=== PATIENT | male | born 1965 | race Caucasian/White ===

== ENCOUNTER 2019-08-07 13:34 | Inpatient (IN) ==
[2019-08-07] MEDS ORDERED: IPRATROPIUM/ALBUTEROL 3 ML AMPUL.NEB NEB ONE ×2 (13:40→14:09)
[2019-08-07] MEDS ORDERED: BENZONATATE 100 MG CAPSULE PO ONE (14:08)
[2019-08-07] MEDS ORDERED: HYDROCORTISONE 10 MG TABLET PO ONE (14:10)
--- NOTE | 2019-08-07 14:18 | Emergency Department Note ---
SOB HPI - General Chief Complaint: Shortness of Breath/Dyspnea Stated Complaint: shortness of breath Time Seen by Provider: 08/07/19 13:40 Source: patient Mode of arrival: ambulatory Limitations: no limitations - History of Present Illness 54-year-old male patient presents emergency department, accompanied by his , with chief complaint of worsening shortness of breath, productive cough, chills, and fever. Patient tells me he became symptomatic last week with the cough and shortness of breath. This progressively worsened until today. He is a liver transplant patient and is known to be immunocompromised associated with this. He was seen by his cook apprentice on 08/02 and during that visit he mention these complaints to the specialist. His cook apprentice ordered a chest x-ray and influenza nasal swab that both were considered negative. He was started on Aug mentin twice daily and has been taking it for the last 3 days without relief. He denies considerable history of COPD but does mention quitting smoking approximately 10 years ago. He is unsure how high his fevers been at home. He admits that his temperature tends to "run low" in his temperature in triage was considered normal at 98.5. He denies sinus congestion or runny nose. He is unsure the color of his sputum. He admits to worsening shortness of breath that is caused to be somewhat anxious. He admits to chest "pressure" but denies overt retrosternal chest pain or palpitations. He denies abdominal pain, nausea, vomiting, or diarrhea. He denies focal weakness. A review of his active problems shows the following: Rheumatoid arthritis, immunosuppression, CVA, liver transplant, hypertension, Valencia's disease, DVT, TIA, chronic kidney disease stage III, psoriasis, osteoporosis, former smoker, hyperkalemia, Dupuytren's disease. - Related Data Home Medications Medication Instructions Recorded Confirmed acetaminophen 500 mg tablet 500 mg PO PRN PRN tab 12/31/18 08/03/19 multivitamin 1 tab PO QDAY 12/31/18 08/03/19 omega-3 fatty acids 1 each PO QDAY 12/31/18 08/03/19 ondansetron HCl 4 mg tablet 4 mg PO Q6H PRN tab 12/31/18 08/03/19 aspirin 81 mg tablet,delayed 81 mg PO QDAY 01/02/19 08/03/19 release tacrolimus 2.5 mg PO BID 01/02/19 08/03/19 oxycodone 15 mg tablet 15 mg PO Q4-5H PRN tab 05/04/19 08/03/19 Previous Rx's Medication Instructions Recorded clobetasol 0.05 % shampoo 1 applic TOPICAL QDAY 7 Days #118 02/24/19 ml hydrocortisone 10 mg tablet 20 mg PO TID #180 tab 05/04/19 mycophenolate mofetil 500 mg tablet 500 mg PO BID #360 tab 05/19/19 amoxicillin 875 mg-potassium 1 tab PO BID #10 tab 08/04/19 clavulanate 125 mg tablet Allergies Allergy/AdvReac Type Severity Reaction Status Date / Time adalimumab [From Humira] Allergy Unknown unknown Verified 08/07/19 13:39 Torsemide AdvReac Severe Abdominal Verified 08/07/19 13:39 Pain Review of Systems All systems ED: reviewed and negative except as stated. Past Medical History - Social History smoking status: Former smoker Physical Exam Limitations: no limitations General appearance: alert, anxious, other (Well-developed, well-nourished, 54-year-old male patient laying semi-recumbent on the emergency room gurney in obvious but mild respiratory distress. He is coughing considerably during exam. He does continue to speak in complete sentences.) Head: atraumatic, normocephalic Eye: Present: normal appearance, PERRL, EOMI. Absent: scleral icterus, conjunctival injection ENT: Present: normal oropharynx, mucous membranes moist Neck: Present: trachea midline. Absent: lymphadenopathy, thyromegaly Chest: Present: symmetric chest wall rise Respiratory: Present: respiratory distress (Mild respiratory distress.), wheezes, prolonged expiratory phase, decreased breath sounds, other (Considerable rhonchi heard throughout the chest. This did not clear considerably with deep cough.). Absent: rales/crackles, stridor Cardiovascular: Present: regular rate, normal rhythm. Absent: systolic murmur, diastolic murmur Abdominal: Present: soft. Absent: distention, tenderness, guarding, rebound, rigidity, organomegaly, mass Extremities: Present: normal inspection, full ROM, normal capillary refill. Absent: pedal edema Back: Present: normal inspection, full ROM Neurological: Present: alert, oriented X3, normal gait, reflexes normal. Absent: motor sensory deficit Psychiatric: Present: normal affect, anxious Skin: Present: warm, dry, normal color Course Course Narrative: Patient was brought into the emergency department and a history and physical exam was performed. I discussed the case and the potential work-up with my collaborating physician (Dr. Campo). At this time routine laboratory studies will be drawn. Repeat chest x-ray was ordered and reviewed. Repeat influenza nasal swab was also ordered and reviewed. Patient has no known exposure to the novel coronavirus. Patient was given DuoNeb treatment x2. Patient was also given benzonatate 20 mg p.o. Review his laboratory studies show the following: CBC WBC 4.0, RBC 4.11, hemoglobin 12.7, hematocrit 36.4, platelet 103. CMP BUN 22, creatinine 1.4, glucose 107, all others normal limits. Procalcitonin 0.06. Lactic acid 1.9. Two-view chest x-ray showing small right lower lobe infiltrate. This is a change from previous chest x-ray done on 08/02. During this time the patient did become profoundly hypoxic with an SPO2 of 81 on room air. Nursing staff placed him on O2 at 2 L/min. SPO2 increased dramatically to 98%. Patient has not been on oxygen prior. Patient was given 1 g of Rocephin IV and 500 mg of azithromycin p.o. After reviewing all the data I reached out to our hospitalist (Dr. Manrique) about possible admission. Hospitalist recommended recommended manual differential the patient CBC. He also consented to to admit the patient to the facility. Upon reevaluation patient is resting comfortably on the emergency room [facility]. He still requires 2 L of oxygen via nasal cannula. I discussed she is admission. At this time patient is going to be admitted to our hospital under the care of the hospitalist. All further treatment decisions, modalities, and ultimate patient disposition will be carried out by Dr. Manrique. Vital Signs Temperature 98.5 F 08/07/19 13:35 Pulse Rate 80 08/07/19 13:35 Respiratory Rate 18 08/07/19 13:35 Blood Pressure 158/110 08/07/19 13:35 Pulse Oximetry (%) 94 08/07/19 13:35 Temperature 98.5 F 08/07/19 13:35 Pulse Rate 90 08/07/19 14:46 Respiratory Rate 18 08/07/19 13:35 Blood Pressure 136/72 08/07/19 14:46 Pulse Oximetry (%) 89 L 08/07/19 14:46 Shortness of Breath/Dyspnea - Lab Data Result diagrams: 08/07/19 14:38 08/07/19 14:38 Lab Results 08/07/19 08/07/19 08/07/19 Range/Units 14:38 14:38 14:38 WBC 4.0 L (4.50-11.00) K/mcL RBC 4.11 L (4.63-6.08) M/mcL Hgb 12.7 L (13.7-17.5) g/dL Hct 36.4 L (40.1-51.0) % MCV 88.6 (80.0-100.0) fL MCH 30.9 (26.0-34.0) pg MCHC 34.9 (31.0-36.0) g/dL RDW 12.3 (11.5-14.5) % Plt Count 103 L (140-440) K/mcL MPV 9.6 (7.4-10.4) fL Gran % 62.2 (38.0-78.0) % Lymph % (Auto) 28.3 (15.5-49.0) % [place]ier % (Auto) 8.0 (1.0-12.0) % Eos % (Auto) 1.0 (0.0-7.0) % Baso % (Auto) 0.5 (0.0-2.0) % Gran # 2.48 (1.80-8.00) K/mcL Lymph # (Auto) 1.13 L (1.50-4.80) K/mcL [place] # (Auto) 0.32 (0.10-0.90) K/mcL Eos # (Auto) 0.04 (0.00-0.70) K/mcL Baso # (Auto) 0.02 (0.00-0.30) K/mcL VBG Lactic Acid (0.5-2.0) mmol/L Sodium 138 (133-145) mmol/L Potassium 4.2 (3.3-5.1) mmol/L Chloride 98 (96-108) mmol/L Carbon Dioxide 27 (22-30) mmol/L Anion Gap 13.0 (8-16) BUN 22 H (6-20) mg/dl Creatinine 1.4 H (0.7-1.2) mg/dl GFR Calculation 56 Glucose 107 H (70-105) mg/dL Calcium 9.7 (8.6-10.4) mg/dl Total Bilirubin 0.4 (0.0-1.0) mg/dL AST 17 (0-37) U/l ALT 14 (0-40) U/l Alkaline Phosphatase 60 (39-117) U/L Total Protein 7.2 (5.9-8.4) gm/dL Albumin 4.8 (3.2-5.2) gm/dL Globulin 2.4 (2.2-3.7) gm/dL Albumin/Globulin Ratio 2.0 (1.0-2.3) Procalcitonin 0.06 (<0.10) ng/mL 08/07/19 Range/Units 14:38 WBC (4.50-11.00) K/mcL RBC (4.63-6.08) M/mcL Hgb (13.7-17.5) g/dL Hct (40.1-51.0) % MCV (80.0-100.0) fL MCH (26.0-34.0) pg MCHC (31.0-36.0) g/dL RDW (11.5-14.5) % Plt Count (140-440) K/mcL MPV (7.4-10.4) fL Gran % (38.0-78.0) % Lymph % (Auto) (15.5-49.0) % Lanier % (Auto) (1.0-12.0) % Eos % (Auto) (0.0-7.0) % Baso % (Auto) (0.0-2.0) % Gran # (1.80-8.00) K/mcL Lymph # (Auto) (1.50-4.80) K/mcL Lanier # (Auto) (0.10-0.90) K/mcL Eos # (Auto) (0.00-0.70) K/mcL Baso # (Auto) (0.00-0.30) K/mcL VBG Lactic Acid 1.9 (0.5-2.0) mmol/L Sodium (133-145) mmol/L Potassium (3.3-5.1) mmol/L Chloride (96-108) mmol/L Carbon Dioxide (22-30) mmol/L Anion Gap (8-16) BUN (6-20) mg/dl Creatinine (0.7-1.2) mg/dl GFR Calculation Glucose (70-105) mg/dL Calcium (8.6-10.4) mg/dl Total Bilirubin (0.0-1.0) mg/dL AST (0-37) U/l ALT (0-40) U/l Alkaline Phosphatase (39-117) U/L Total Protein (5.9-8.4) gm/dL Albumin (3.2-5.2) gm/dL Globulin (2.2-3.7) gm/dL Albumin/Globulin Ratio (1.0-2.3) Procalcitonin (<0.10) ng/mL Disposition Pt seen by MANAGER CANCER/PA only: Yes Clinical Impression: Immunosuppressed status, Liver transplant status Pneumonia Qualifiers: Pneumonia type: due to unspecified organism Laterality: right Lung location: lower lobe of lung Qualified Code(s): J18.9 - Pneumonia, unspecified organism Disposition: Xfer As Outpt/Obs ([facility]) Condition: Good Additional Instructions: Patient is being admitted to the hospital under the care of the hospitalist (Dr. Manrique). All further treatment decisions, modalities, and ultimate patient disposition be carried out by the hospitalist. Referrals: Alan Dempsey DO [Primary Care Provider] -
--- NOTE | 2019-08-07 15:16 | XRay Report ---
CLINICAL INFORMATION: 54 y/o M. Worsening cough, chest congestion X 1 wk COMPARISON: 08/03/2019 FINDINGS: Heart size, mediastinum and pulmonary vessels are normal. Small infiltrate posterior right lower lobe. No effusion. IMPRESSION: Small right lower lobe infiltrate Interpreted and Authenticated by: Yaron Carroll 08/07/19
[2019-08-07 15:22] LABS: Basophils # (Auto) 0.02 K/mcL (0.00-0.30); Basophils % (Auto) 0.5 % (0.0-2.0); Eosinophils # (Auto) 0.04 K/mcL (0.00-0.70); Granulocytes % (Auto) 62.2 % (38.0-78.0); Hematocrit 36.4 % (40.1-51.0); Hemoglobin 12.7 g/dL (13.7-17.5); Lymphocytes # (Auto) 1.13 K/mcL (1.50-4.80); Lymphocytes % (Auto) 28.3 % (15.5-49.0); Mean Cell Volume 88.6 fL (80.0-100.0); Mean Corpuscular HGB Conc 34.9 g/dL (31.0-36.0); Mean Platelet Volume 9.6 fL (7.4-10.4); Monocytes # (Auto) 0.32 K/mcL (0.10-0.90); Platelet Count 103 K/mcL (140-440); RBC 4.11 M/mcL (4.63-6.08); Red Cell Distribution Width 12.3 % (11.5-14.5)
[2019-08-07] MEDS ORDERED: AZITHROMYCIN 250 MG TABLET PO ONE (15:24)
[2019-08-07] MEDS ORDERED: cefTRIAXone 1 GM VIAL IV SCH (15:30)
[2019-08-07 15:46] LABS: ALT/SGPT 14 U/l (0-40); AST/SGOT 17 U/l (0-37); Albumin 4.8 gm/dL (3.2-5.2); Alkaline Phosphatase 60 U/L (39-117); Bilirubin,Total 0.4 mg/dL (0.0-1.0); Blood Urea Nitrogen 22 mg/dl (6-20); Calcium 9.7 mg/dl (8.6-10.4); Carbon Dioxide 27 mmol/L (22-30); Chloride 98 mmol/L (96-108); Globulin 2.4 gm/dL (2.2-3.7); Glomerular Filtration Rate 56; Glucose 107 mg/dL (70-105)
--- NOTE | 2019-08-07 17:03 | Internal Med History&Physical ---
Medical - H&P: [facility] Patient information: Note initiated : 08/07/19 at 5:00 pm Service Date, if different from initiated Date: [] Patient: Caio Lang a 54 y/o M admitted on for shortness of breath. Chief Complaint: [] History of present illness: Mr. Lang is a 54 year old M Presents the ED with fever chills coughing shortness of breath. Patient states about a week ago he started belting rhinorrhea and subsequent cough of clear white sputum. He then developed fevers and chills body aches and headache which he attributed the cough. Decreased appetite and weakness. Also had some nausea. Over the past 2 to 3 days had increased shortness of breath. He saw his physician and was prescribed Augmentin and has taken that for 3 days but has not felt any better. In the ED he was noted to drop his oxygen saturation at one point down to the 80s on room air. Patient denies any traveling or sick contacts. Patient denies any chest pain or stomach pain other than muscle pain from coughing. Chest x-ray in ED read as a right lower lobe infiltrate. He states the DuoNeb treatment he received in the ED helped his breathing. He had a rapid flu test recently which was negative Review of Systems: Pertinent positives as above. Denies vomiting/chest or abdominal pain/diarrhea. Remaining 10 point review of system reviewed negative Medical - H&P: PM Medical history: Medical History (Last Updated 08/07/19 @ 13:48 by Yoni Campo DO) Rheumatoid arthritis (Chronic) Immunosuppressed status (Chronic) Therapeutic drug monitoring (Chronic) Therapeutic drug monitoring (Chronic) CVA (cerebral vascular accident) (Chronic) Liver cirrhosis (Chronic) Essential hypertension (Chronic) Parmele disease (Chronic) DVT (deep venous thrombosis) (Chronic) Chronic pain (Chronic) TIA (transient ischemic attack) (Chronic) Psoriatic arthritis (Chronic) CKD stage G3b/A1, GFR 30-44 and albumin creatinine ratio <30 mg/g (Chronic) History of ATN (Chronic) Psoriasis (Chronic) Edema (Chronic) Hip pain (Chronic) Osteoporosis (Chronic) Arthritis (Chronic) Renal insufficiency (Chronic) Former smoker (Chronic) Expressive aphasia (Chronic) Hyperkalemia (Chronic) Osteoarthritis (Chronic) Polyarthralgia (Chronic) Dupuytren's disease (Chronic) Drug-induced hyperkalemia (Resolved) Shoulder pain (Resolved) Past Surgical History (Last Reviewed 08/03/19 @ 08:39 by Boni Duque MD) Liver transplant status (Chronic) History of adenoidectomy (Chronic) History of carpal tunnel release (Chronic) History of hernia repair (Chronic) History of liver transplant (Chronic 09/11/16) History of tonsillectomy (Chronic) Family History (Last Reviewed 08/03/19 @ 08:39 by Boni Duque MD) Mother COPD (chronic obstructive pulmonary disease) Father Myocardial infarction Malignant neoplasm of skin Social History (Last Updated 08/03/19 @ 14:14 by Boni Duque MD) Patient quit smoking 15 years ago Denies alcohol use Lives at home with his . Medical - H&P: Meds Home Medications Medication Instructions Recorded Confirmed Type acetaminophen 500 mg tablet 500 mg PO PRN PRN tab 12/31/18 08/07/19 History multivitamin 1 tab PO QDAY 12/31/18 08/07/19 History omega-3 fatty acids 1 each PO QDAY 12/31/18 08/03/19 History ondansetron HCl 4 mg tablet 4 mg PO Q6H PRN tab 12/31/18 08/07/19 History aspirin 81 mg tablet,delayed 81 mg PO QDAY 01/02/19 08/07/19 History release tacrolimus 2.5 mg PO BID 01/02/19 08/07/19 History hydrocortisone 10 mg tablet 20 mg PO TID #180 tab 05/04/19 08/07/19 Rx oxycodone 15 mg tablet 15 mg PO Q4-5HP PRN tab 05/04/19 08/07/19 History mycophenolate mofetil 500 mg tablet 500 mg PO BID #360 tab 05/19/19 08/07/19 Rx amoxicillin 875 mg-potassium 1 tab PO BID #10 tab 08/04/19 08/07/19 Rx clavulanate 125 mg tablet Allergies Allergy/AdvReac Type Severity Reaction Status Date / Time adalimumab [From Humira] Allergy Unknown unknown Verified 08/07/19 13:39 Torsemide AdvReac Severe Abdominal Verified 08/07/19 13:39 Pain Medical - H&P: Exam - Constitutional Vitals: Temp Pulse Resp BP Pulse Ox 98.5 F 90 18 136/72 89 L 08/07/19 13:35 08/07/19 14:46 08/07/19 13:35 08/07/19 14:46 08/07/19 14:46 Exam: General: Alert, Awake, No acute Distress Eyes/N/T: EOMI, PERRL, Head/Neck: neck supple, normocephalic atraumatic CV: RRR, 2/6 SM Pulm: b/l rhonchi to mid chest and mild b/l wheezing Abd: soft, nontender, +BS x4 Ext: no clubbing/cyanosis/edema Neuro: Alert, no focal deficits, moves all extremities, CN 2-12 grossly intact, symmetrical strength b/l upper/lower, sensations intact b/l upper/lower Skin: warm/dry Medical - H&P: Reslt - Labs CBC & Chem 7: 08/07/19 14:38 08/07/19 14:38 Labs: Short CBC 08/07/19 Range/Units 14:38 WBC 4.0 L (4.50-11.00) K/mcL Hgb 12.7 L (13.7-17.5) g/dL Hct 36.4 L (40.1-51.0) % Plt Count 103 L (140-440) K/mcL BMP 08/07/19 14:38 Sodium 138 Potassium 4.2 Chloride 98 Carbon Dioxide 27 BUN 22 H Creatinine 1.4 H Glucose 107 H Calcium 9.7 Liver Function 08/07/19 Range/Units 14:38 Total Bilirubin 0.4 (0.0-1.0) mg/dL AST 17 (0-37) U/l ALT 14 (0-40) U/l Alkaline Phosphatase 60 (39-117) U/L Albumin 4.8 (3.2-5.2) gm/dL Medical - H&P: A/P - Narrative A/P Narrative: A: *Pneumonia (RLL): suspect viral but concern for bacterial superinfection, pt high-risk -no improvement on Augmentin for 3-days prior to arrival *Acute hypoxic respiratory failure: -on 2L NC *Leukopenia: *Liver transplant/Immunosuppressed: Liver failure felt to be from Humira. Is on mycophenolate and tacrolimus *CKD IIIb: Follows with Dr. Duque *Anemia, chronic *h/o Jose's: on hydrocortisone *RA: Follows with rheumatology *h/o CVA w/mild memory deficits: * P: -RVP pending, crp/esr -SC pending -Vanc/Cefepime for now -O2 supp -Nebs/IS/Acapella -no need for stress steroid dosing at this time - -cont home medications -ppx: lovenox
[2019-08-07 18:36] LABS: Band Neutrophils % 2 % (0-10); Eosinophils % (Manual) 1 % (0-7); Lymphocytes % 22 % (15-49); Monocytes % (Manual) 4 % (1-12); Platelet Estimate DECREASED (NORMAL); RBC Morphology NORMAL (NORMAL); Reactive Lymphocytes 1 % (0-2); Segmented Neutrophils % 70 % (38-78)
[2019-08-07] MEDS ORDERED: IPRATROPIUM/ALBUTEROL 3 ML AMPUL.NEB NEB PRN (19:13)
[2019-08-07] MEDS ORDERED: POLYETHYLENE GLYCOL 3350 17 GM PACKET PO PRN (19:13)
[2019-08-07] MEDS ORDERED: 0.9 % SODIUM CHLORIDE 1,000 ML IV SCH (19:13)
[2019-08-07] MEDS ORDERED: VANCOMYCIN PER PHARMACY IV SCH (19:13)
[2019-08-07] MEDS ORDERED: SENNOSIDES 1 TABLET PO PRN (19:13)
[2019-08-07] MEDS ORDERED: POTASSIUM CHLORIDE 40 MEQ in DEXTROSE 5% IN WATER 500 ML IV PRN (19:13)
[2019-08-07] MEDS ORDERED: POTASSIUM CHLORIDE 20 MEQ TABLET PO PRN ×2 (19:13)
[2019-08-07] MEDS ORDERED: MAGNESIUM SULFATE 2 GM/50 ML BAG IV PRN (19:13)
[2019-08-07] MEDS: MYCOPHENOLATE 250 MG CAPSULE PO SCH (20:19)
[2019-08-07] MEDS: oxyCODONE HCL 5 MG TABLET PO PRN (20:20)
[2019-08-07] MEDS: CEFEPIME 2 GM VIAL IV SCH (20:20)
[2019-08-07] MEDS: HYDROCORTISONE 10 MG TABLET PO SCH (20:20)
[2019-08-07] MEDS: IPRATROPIUM/ALBUTEROL 3 ML AMPUL.NEB NEB SCH (20:20)
[2019-08-07] MEDS: TACROLIMUS 0.5 MG CAPSULE PO SCH (20:23)
[2019-08-07] MEDS: TACROLIMUS 1 MG CAPSULE PO SCH (20:24)
[2019-08-07] MEDS: ONDANSETRON 4 MG/2 ML VIAL IV PRN (20:26)
[2019-08-07] MEDS: 0.9 % SODIUM CHLORIDE 10 ML SYRINGE IV SCH (20:34)
[2019-08-07] MEDS: VANCOMYCIN 1,000 MG in 0.9 % SODIUM CHLORIDE 250 ML IV SCH (20:38)
[2019-08-07] MEDS: ACETAMINOPHEN 325 MG TABLET PO PRN (20:49)
[2019-08-08] MEDS: ONDANSETRON 4 MG/2 ML VIAL IV PRN ×3 (00:45→12:00)
[2019-08-08] MEDS: BENZONATATE 100 MG CAPSULE PO PRN ×2 (02:39→21:35)
[2019-08-08] MEDS: oxyCODONE HCL 5 MG TABLET PO PRN ×3 (02:39→21:26)
[2019-08-08] MEDS: ACETAMINOPHEN 325 MG TABLET PO PRN (02:39)
[2019-08-08] MEDS: 0.9 % SODIUM CHLORIDE 10 ML SYRINGE IV SCH ×3 (05:43→20:09)
[2019-08-08 06:33] LABS: Hematocrit 34.4 % (40.1-51.0); Hemoglobin 11.7 g/dL (13.7-17.5); Mean Cell Volume 89.8 fL (80.0-100.0); Mean Platelet Volume 9.8 fL (7.4-10.4); Platelet Count 101 K/mcL (140-440); RBC 3.83 M/mcL (4.63-6.08); Red Cell Distribution Width 12.3 % (11.5-14.5)
[2019-08-08 06:54] LABS: ALT/SGPT 11 U/l (0-40); AST/SGOT 12 U/l (0-37); Albumin 4.4 gm/dL (3.2-5.2); Albumin/Globulin Ratio 1.9 (1.0-2.3); Alkaline Phosphatase 55 U/L (39-117); Bilirubin,Direct < 0.2 mg/dL (0.0-0.3); Bilirubin,Total 0.4 mg/dL (0.0-1.0); Blood Urea Nitrogen 17 mg/dl (6-20); Carbon Dioxide 26 mmol/L (22-30); Chloride 102 mmol/L (96-108); Globulin 2.3 gm/dL (2.2-3.7); Glomerular Filtration Rate 56; Glucose 110 mg/dL (70-105); HDL Cholesterol 26 mg/dl (>40); LDL Cholesterol,Calculated 84 mg/dl (SEE CHART); Lactate Dehydrogenase 162 U/L (94-250); Non-HDL Cholesterol 114 (LDL TARGET+30); Triglycerides 153 mg/dl (<150); Uric Acid 6.4 mg/dL (2.5-8.0)
[2019-08-08 06:55] LABS: Phosphorous 3.1 mg/dL (2.7-4.5)
[2019-08-08 07:24] LABS: Band Neutrophils % 4 % (0-10); Lymphocytes % 19 % (15-49); Monocytes % (Manual) 7 % (1-12); Platelet Estimate DECREASED (NORMAL); RBC Morphology NORMAL (NORMAL); Segmented Neutrophils % 70 % (38-78)
--- NOTE | 2019-08-08 07:27 | XRay Report ---
CLINICAL INFORMATION: f/u RLL infiltrate COMPARISON: 08/07/2019 FINDINGS: Heart size, mediastinum and pulmonary vessels are unremarkable. The right lower lobe infiltrate as resolved since yesterday's film. Lungs are clear. No effusions. IMPRESSION: Negative chest - interval resolution of small right lower lobe infiltrate Interpreted and Authenticated by: Yaron Carroll 08/08/19
[2019-08-08] MEDS: MYCOPHENOLATE 250 MG CAPSULE PO SCH ×2 (07:40→20:09)
[2019-08-08] MEDS ORDERED: LABETALOL 5 MG/ML ML IV PRN (08:08)
--- NOTE | 2019-08-08 08:09 | Internal Med Progress Note ---
Medical - PN: Subj Patient information: Note initiated : 08/08/19 at 8:05 am Service Date, if different from initiated Date: [] Patient: Caio Lang a 54 y/o M admitted on 08/07/19 for shortness of breath. Chief Complaint: [] Interval history: Mr. Lang is a 54 year old M Presents the ED with fever chills coughing shortness of breath. Patient states about a week ago he started belting rhinorrhea and subsequent cough of clear white sputum. He then developed fevers and chills body aches and headache which he attributed the cough. Decreased appetite and weakness. Also had some nausea. Over the past 2 to 3 days had increased shortness of breath. He saw his physician and was prescribed Augmentin and has taken that for 3 days but has not felt any better. In the ED he was noted to drop his oxygen saturation at one point down to the 80s on room air. Patient denies any traveling or sick contacts. Patient denies any chest pain or stomach pain other than muscle pain from coughing. Chest x-ray in ED read as a right lower lobe infiltrate. He states the DuoNeb treatment he received in the ED helped his breathing. He had a rapid flu test recently which was negative 08/07 Poor sleep last night. Headache, nausea vomiting, fever chills, diarrhea last night. Feels like his lungs are little better but still coughing. Air this morning. Review of Systems: denies vomiting/chest or abdominal pain/ Otherwise see above. - Constitutional Vitals: Vital Signs Temp Pulse Resp BP Pulse Ox 98.7 F 73 16 137/89 98 08/08/19 06:54 08/08/19 06:54 08/08/19 06:54 08/08/19 06:54 08/08/19 06:54 Period Temp Pulse Resp BP Sys/Ureña Pulse Ox Last 24 Hr 97.1 F-98.9 F 65-94 - 94-169/56-113 89-100 Intake and Output 08/07/19 08/08/19 08/08/19 21:59 05:59 13:59 Intake Total 240 1920 Output Total 200 Balance 240 1720 Weight 97.976 kg Intake & Output: Intake & Output 08/07/19 08/08/19 08/08/19 21:59 05:59 13:59 Intake Total 240 1920 Output Total 200 Balance 240 1720 Weight 97.976 kg Intake: IV 1250 Sodium Chloride 0.9% 1,000 ml @ 1000 125 mls/hr IV .Q8H KELI Rx#: [id number] Vancomycin 1,000 mg In Sodium 250 Chloride 0.9% 250 ml @ 250 mls/ hr IV Q12H KELI Rx#:[id number] Oral 240 670 Output: Void Amount 200 Other: Urine Appearance Clear Urine Color Pale Stool Size Small Moderate Stool Color Brown Yellow Stool Consistency Soft Loose # Voids 1 1 # Bowel Movements 1 1 Exam: General: Alert, Awake, No acute Distress Eyes/N/T: EOMI, , Head/Neck: neck supple, CV: RRR, 2/6 SM Pulm: b/l rhonchi to mid chest and mild b/l wheezing mildly improved today Abd: soft, nontender, +BS x4 Ext: no clubbing/cyanosis/edema Neuro: Alert, no focal deficits, moves all extremities, Skin: warm/dry Medical - PN: Obj Da - Labs CBC & Chem 7: 08/08/19 05:27 08/08/19 05:27 Labs: Abnormal Lab Results 08/08/19 08/08/19 08/07/19 05:27 05:27 14:38 WBC 4.0 L RBC 3.83 L Hgb 11.7 L Hct 34.4 L Plt Count 101 L Lymph # (Auto) Platelet Estimate Decreased A ESR 16 H BUN Creatinine 1.4 H Glucose 110 H Triglycerides 153 H HDL Cholesterol 26 L 08/07/19 08/07/19 08/07/19 14:38 14:38 14:38 WBC 4.0 L RBC 4.11 L Hgb 12.7 L Hct 36.4 L Plt Count 103 L Lymph # (Auto) 1.13 L Platelet Estimate Decreased A ESR BUN 22 H Creatinine 1.4 H Glucose 107 H Triglycerides HDL Cholesterol Meds: Medications Acetaminophen (Tylenol) 650 mg PO Q6HP PRN PRN Reason: PAIN/FEVER > 101 Last Admin: 08/08/19 02:39 Dose: 650 mg Documented by: Albuterol/Ipratropium (Duoneb) 3 ml NEB Q4HP PRN PRN Reason: Shortness Of Breath Last Admin: 08/08/19 00:45 Dose: 3 ml Documented by: Albuterol/Ipratropium (Duoneb) 3 ml NEB BID [facility] Last Admin: 08/07/19 20:20 Dose: 3 ml Documented by: Aspirin (Aspirin) 81 mg PO QDAY [facility] Benzonatate (Tessalon) 200 mg PO TIDP PRN PRN Reason: Cough Last Admin: 08/08/19 02:39 Dose: 200 mg Documented by: Cefepime HCl (Maxipime) 2 gm IV Q12H [facility]; Protocol Last Admin: 08/07/19 20:20 Dose: 2 gm Documented by: Enoxaparin Sodium (Lovenox) 40 mg SQ DAILY [facility] Hydrocortisone (Cortef) 20 mg PO TID [facility] Last Admin: 08/07/19 20:20 Dose: 20 mg Documented by: Potassium Chloride 40 meq/ (Dextrose) 520 mls @ 130 mls/hr IV UD PRN PRN Reason: Potassium < 3 Magnesium Sulfate (Magnesium Sulfate) 2 gm in 50 mls @ 50 mls/hr IV UD PRN PRN Reason: Magnesium </= 1.6 Vancomycin HCl 1,000 mg/ (Sodium Chloride) 250 mls @ 250 mls/hr IV Q12H [facility] Last Infusion: 08/08/19 00:23 Dose: Infused Documented by: Mycophenolate Mofetil (Cellcept) 500 mg PO BID@0700,2000 [facility] Last Admin: 08/08/19 07:40 Dose: 500 mg Documented by: Ondansetron HCl (Zofran) 4 mg IV Q4HP PRN PRN Reason: Nausea And Vomiting Last Admin: 08/08/19 05:43 Dose: 4 mg Documented by: Oxycodone HCl (Roxicodone) 15 mg PO Q4-5HP PRN PRN Reason: Pain Last Admin: 08/08/19 02:39 Dose: 15 mg Documented by: Pneumococcal Polyvalent Vaccine (Pneumovax 23) 0.5 ml IM .ONCE ONE Stop: 08/08/19 10:01 Polyethylene Glycol (Miralax) 17 gm PO DAILYP PRN PRN Reason: Constipation Potassium Chloride (Kdur) 40 meq PO UD PRN PRN Reason: Potssium is 3-3.5 Potassium Chloride (Kdur) 40 meq PO UD PRN PRN Reason: Potassium < 3 Senna (Senokot) 2 tab PO DAILYP PRN PRN Reason: Constipation Sodium Chloride (Saline Flush) 10 ml IV Q8 [facility] Last Admin: 08/08/19 05:43 Dose: 10 ml Documented by: Tacrolimus (Tacrolimus) 2 mg PO BID [facility] Last Admin: 08/07/19 20:24 Dose: 2 mg Documented by: Tacrolimus (Prograf) 0.5 mg PO BID [facility] Last Admin: 08/07/19 20:23 Dose: 0.5 mg Documented by: Vancomycin HCl (Vancomycin Per Pharmacy) 1 order IV UD [facility]; Protocol Medical - PN: A/P - Time Spent With Patient Total time spent is greater than 50% in coordination of care (as documented) at patient's floor/unit and/or counseling patient: - Narrative A/P Narrative: A: *Pneumonia, Viral, (+)Human Metapneumovitus: but high risk for bacterial superinfection -no improvement on Augmentin for 3-days prior to arrival *Acute hypoxic respiratory failure: -on 2L NC on admit, now on Room air -still feeling quite poorly *Leukopenia: *Liver transplant/Immunosuppressed: Liver failure felt to be from Humira. Is on mycophenolate and tacrolimus *CKD IIIb: Follows with Dr. Duque *Anemia, chronic *h/o [place]'s: on hydrocortisone *RA: Follows with rheumatology *h/o CVA w/mild memory deficits: * P: -Vanc/Cefepime for now -O2 supp -Nebs/IS/Acapella -no need for stress steroid dosing at this time - -cont home medications -ppx: lovenox Medical - PN: Qual - VTE Deep Vein Thrombosis/Pulmonary Embolism Present on Admission: No
[2019-08-08] MEDS: IPRATROPIUM/ALBUTEROL 3 ML AMPUL.NEB NEB SCH ×3 (09:04→20:43)
[2019-08-08] MEDS ORDERED: diphenhydrAMINE 25 MG CAPSULE PO PRN ×2 (09:06→14:44)
[2019-08-08] MEDS: CEFEPIME 2 GM VIAL IV SCH ×2 (09:20→20:09)
[2019-08-08] MEDS: VANCOMYCIN 1,000 MG in 0.9 % SODIUM CHLORIDE 250 ML IV SCH ×2 (09:20→21:26)
[2019-08-08] MEDS: ASPIRIN 81 MG TAB.CHEW PO SCH (09:21)
[2019-08-08] MEDS: HYDROCORTISONE 10 MG TABLET PO SCH ×3 (09:21→20:09)
[2019-08-08] MEDS: TACROLIMUS 1 MG CAPSULE PO SCH ×2 (09:21→20:09)
[2019-08-08] MEDS: TACROLIMUS 0.5 MG CAPSULE PO SCH ×2 (09:21→20:09)
[2019-08-08] MEDS: ENOXAPARIN 40 MG/0.4 ML SYRINGE SQ SCH (09:22)
[2019-08-08] MEDS ORDERED: PNEUMOCOCCAL 23-VAL P-SAC VAC 0.5 ML SYRINGE IM ONE (10:00)
[2019-08-08] MEDS ORDERED: FLU VACC QS2019-20(6MOS UP)/PF 60 MCG/0.5 ML SYRINGE IM ONE (10:00)
[2019-08-08] MEDS ORDERED: PROCHLORPERAZINE 10 MG/2 ML VIAL IV PRN (14:43)
[2019-08-08] MEDS ORDERED: PROMETHAZINE 25 MG TABLET PO PRN (14:43)
[2019-08-08] MEDS: diphenhydrAMINE 12.5 MG/5 ML ORAL.SOL PO PRN (16:16)
[2019-08-08] MEDS ORDERED: LOPERAMIDE 2 MG CAPSULE PO PRN (18:29)
[2019-08-08] MEDS: MELATONIN 3 MG TABLET PO SCH (20:09)
[2019-08-09] MEDS: 0.9 % SODIUM CHLORIDE 10 ML SYRINGE IV SCH ×4 (03:11→20:15)
[2019-08-09] MEDS: MYCOPHENOLATE 250 MG CAPSULE PO SCH ×2 (07:36→20:14)
--- NOTE | 2019-08-09 08:10 | Internal Med Progress Note ---
Medical - PN: Subj Patient information: Note initiated : 08/09/19 at 8:09 am Service Date, if different from initiated Date: [] Patient: Caio Lang a 54 y/o M admitted on 08/07/19 for shortness of breath. Chief Complaint: [] Interval history: Mr. Lang is a 54 year old M Presents the ED with fever chills coughing shortness of breath. Patient states about a week ago he started belting rhinorrhea and subsequent cough of clear white sputum. He then developed fevers and chills body aches and headache which he attributed the cough. Decreased appetite and weakness. Also had some nausea. Over the past 2 to 3 days had increased shortness of breath. He saw his physician and was prescribed Augmentin and has taken that for 3 days but has not felt any better. In the ED he was noted to drop his oxygen saturation at one point down to the 80s on room air. Patient denies any traveling or sick contacts. Patient denies any chest pain or stomach pain other than muscle pain from coughing. Chest x-ray in ED read as a right lower lobe infiltrate. He states the DuoNeb treatment he received in the ED helped his breathing. He had a rapid flu test recently which was negative 08/07 Poor sleep last night. Headache, nausea vomiting, fever chills, diarrhea last night. Feels like his lungs are little better but still coughing. Air this morning. 08/08 Slept better last night. Has occasional headache and had chills through the night. Some sinus congestion and cough. Cough productive. Shortness of breath improving. Review of Systems: denies vomiting/chest or abdominal pain. Otherwise see above. - Constitutional Vitals: Vital Signs Temp Pulse Resp BP Pulse Ox 99.5 F H 73 18 132/74 96 08/09/19 06:52 08/09/19 06:52 08/09/19 06:52 08/09/19 06:52 08/09/19 06:52 Period Temp Pulse Resp BP Sys/Ureña Pulse Ox Last 24 Hr 98.2 F-99.5 F 67-99 16-20 132-151/66-88 95-98 Intake and Output 08/08/19 08/09/19 08/09/19 21:59 05:59 13:59 Intake Total 1920 750 Output Total 450 Balance 1470 750 Weight 88.768 kg Intake & Output: Intake & Output 08/08/19 08/09/19 08/09/19 21:59 05:59 13:59 Intake Total 1920 750 Output Total 450 Balance 1470 750 Weight 88.768 kg Intake: Nourishment/Supplement quantity 240 (ml) IV 250 Vancomycin 1,000 mg In Sodium 250 Chloride 0.9% 250 ml @ 250 mls/ hr IV Q12H [facility] Rx#:[id number] Oral 880 500 GI Tube Flush 800 Output: Void Amount 450 Other: Meal Dinner Percent of Meal Consumed 50% Feeding Ability Independent Nourishment/Supplement name breeze Stool Size Small Stool Consistency Loose # Voids 4 2 # Bowel Movements 2 Exam: General: Alert, Awake, No acute Distress Eyes/N/T: EOMI, , Head/Neck: neck supple, CV: RRR, 2/6 SM Pulm: b/l rhonchi improving, no wheezing Abd: soft, nontender, +BS x4 Ext: no clubbing/cyanosis/edema Neuro: Alert, no focal deficits, moves all extremities, Skin: warm/dry Medical - PN: Obj Da - Labs CBC & Chem 7: 08/08/19 05:27 08/08/19 05:27 Labs: Abnormal Lab Results 08/08/19 08/08/19 08/07/19 05:27 05:27 14:38 WBC 4.0 L RBC 3.83 L Hgb 11.7 L Hct 34.4 L Plt Count 101 L Lymph # (Auto) Platelet Estimate Decreased A ESR 16 H BUN Creatinine 1.4 H Glucose 110 H Triglycerides 153 H HDL Cholesterol 26 L 08/07/19 08/07/19 08/07/19 14:38 14:38 14:38 WBC 4.0 L RBC 4.11 L Hgb 12.7 L Hct 36.4 L Plt Count 103 L Lymph # (Auto) 1.13 L Platelet Estimate Decreased A ESR BUN 22 H Creatinine 1.4 H Glucose 107 H Triglycerides HDL Cholesterol Meds: Medications Acetaminophen (Tylenol) 650 mg PO Q6HP PRN PRN Reason: PAIN/FEVER > 101 Last Admin: 08/08/19 02:39 Dose: 650 mg Documented by: Albuterol/Ipratropium (Duoneb) 3 ml NEB Q4HP PRN PRN Reason: Shortness Of Breath Last Admin: 08/08/19 00:45 Dose: 3 ml Documented by: Albuterol/Ipratropium (Duoneb) 3 ml NEB BID [facility] Last Admin: 08/08/19 20:43 Dose: 3 ml Documented by: Aspirin (Aspirin) 81 mg PO QDAY [facility] Last Admin: 08/08/19 09:21 Dose: 81 mg Documented by: Benzonatate (Tessalon) 200 mg PO TIDP PRN PRN Reason: Cough Last Admin: 08/08/19 21:35 Dose: 200 mg Documented by: Cefepime HCl (Maxipime) 2 gm IV Q12H [facility]; Protocol Last Admin: 08/08/19 20:09 Dose: 2 gm Documented by: Diphenhydramine HCl (Benadryl) 25 mg PO HSP PRN PRN Reason: Insomnia Diphenhydramine HCl (Bendadryl) 12.5 mg PO Q6HP PRN PRN Reason: Nausea Last Admin: 08/08/19 16:16 Dose: 12.5 mg Documented by: Enoxaparin Sodium (Lovenox) 40 mg SQ DAILY [facility] Last Admin: 08/08/19 09:22 Dose: 40 mg Documented by: Hydrocortisone (Cortef) 20 mg PO TID [facility] Last Admin: 08/08/19 20:09 Dose: 20 mg Documented by: Potassium Chloride 40 meq/ (Dextrose) 520 mls @ 130 mls/hr IV UD PRN PRN Reason: Potassium < 3 Magnesium Sulfate (Magnesium Sulfate) 2 gm in 50 mls @ 50 mls/hr IV UD PRN PRN Reason: Magnesium </= 1.6 Vancomycin HCl 1,000 mg/ (Sodium Chloride) 250 mls @ 250 mls/hr IV Q12H [facility] Last Infusion: 08/08/19 22:38 Dose: Infused Documented by: Labetalol HCl (Trandate) 0 mg IV Q2HP PRN PRN Reason: Hypertension Last Admin: 08/09/19 03:11 Dose: 10 mg Documented by: Loperamide HCl (Imodium) 2 mg PO PRN PRN PRN Reason: Diarrhea Last Admin: 08/09/19 05:15 Dose: 2 mg Documented by: Melatonin (Melatonin 3mg Tablet) 3 mg PO QHS [facility] Last Admin: 08/08/19 20:09 Dose: 3 mg Documented by: Morphine Sulfate (Morphine) 1 - 3 mg IV Q3HP PRN; Protocol PRN Reason: Per Pain Protocol Mycophenolate Mofetil (Cellcept) 500 mg PO BID@0700,2000 [facility] Last Admin: 08/09/19 07:36 Dose: 500 mg Documented by: Ondansetron HCl (Zofran) 4 mg IV Q4HP PRN PRN Reason: Nausea And Vomiting Last Admin: 08/08/19 12:00 Dose: 4 mg Documented by: Oxycodone HCl (Roxicodone) 15 mg PO Q4-5HP PRN PRN Reason: Pain Last Admin: 08/08/19 21:26 Dose: 15 mg Documented by: Polyethylene Glycol (Miralax) 17 gm PO DAILYP PRN PRN Reason: Constipation Potassium Chloride (Kdur) 40 meq PO UD PRN PRN Reason: Potssium is 3-3.5 Potassium Chloride (Kdur) 40 meq PO UD PRN PRN Reason: Potassium < 3 Prochlorperazine (Compazine) 5 mg IV Q6HP PRN PRN Reason: Nausea And Vomiting Last Admin: 08/08/19 15:05 Dose: 5 mg Documented by: Promethazine HCl (Phenergan) 12.5 mg PO Q6HP PRN PRN Reason: Nausea And Vomiting Last Admin: 08/08/19 15:26 Dose: 12.5 mg Documented by: Senna (Senokot) 2 tab PO DAILYP PRN PRN Reason: Constipation Sodium Chloride (Saline Flush) 10 ml IV Q8 [facility] Last Admin: 08/09/19 05:15 Dose: 10 ml Documented by: Tacrolimus (Tacrolimus) 2 mg PO BID [facility] Last Admin: 08/08/19 20:09 Dose: 2 mg Documented by: Tacrolimus (Prograf) 0.5 mg PO BID [facility] Last Admin: 08/08/19 20:09 Dose: 0.5 mg Documented by: Vancomycin HCl (Vancomycin Per Pharmacy) 1 order IV UD [facility]; Protocol Medical - PN: A/P - Time Spent With Patient Total time spent is greater than 50% in coordination of care (as documented) at patient's floor/unit and/or counseling patient: - Narrative A/P Narrative: A: *Pneumonia, Viral, (+)Human Metapneumovitus: but high risk for bacterial superinfection -no improvement on Augmentin for 3-days prior to arrival -SC with GPC clusters and GNB *Acute hypoxic respiratory failure: -on 2L NC on admit, now on Room air -still feeling quite poorly but improving *Leukopenia: *Liver transplant/Immunosuppressed: Liver failure felt to be from Humira. Is on mycophenolate and tacrolimus *CKD IIIb: Follows with Dr. Duque *Anemia, chronic *h/o [place]'s: on hydrocortisone *RA: Follows with rheumatology *h/o CVA w/mild memory deficits: * P: -Vanc(d/c)/Cefepime for now -O2 supp prn -Nebs/IS/Acapella -no need for stress steroid dosing at this time - -cont home medications -ppx: lovenox Medical - PN: Qual - VTE Deep Vein Thrombosis/Pulmonary Embolism Present on Admission: No
[2019-08-09] MEDS ORDERED: LORATADINE 10 MG TABLET PO ONE (08:33)
--- NOTE | 2019-08-09 08:45 | Discharge Summary ---
Medical - DS: Prov Patient information: Note initiated : 08/09/19 at 8:43 am Service Date, if different from initiated Date: [] Patient: Caio Lang 54 y/o M admitted on 08/07/19 for shortness of breath. Chief Complaint: [] Date of admission: 08/07/19 19:08 Discharge date: 08/10/19 Primary care physician: Alan Dempsey Consults: 08/07/19 Consult to Physician [CONS] Stat Comment: Consulting Provider: Darin Manrique Reason For Exam: Physician to Consult Medical - DS: Meds - Discharge Medications Prescriptions: Benzonatate [Tessalon] 200 mg PO TIDP PRN #18 cap PRN Reason: Cough Transmission Status: Pending to [facility] Active and Home Medications: Home Medications acetaminophen 500 mg tablet 500 mg PO PRN PRN tab 12/31/18 [History Confirmed 08/07/19 Last Taken 08/07/19 13:00] multivitamin 1 tab PO QDAY 12/31/18 [History Confirmed 08/07/19 Last Taken 08/07/19 08:00] omega-3 fatty acids 1 each PO QDAY 12/31/18 [History Confirmed 08/07/19 Last Taken 08/07/19 08:00] ondansetron HCl 4 mg tablet 4 mg PO Q6H PRN tab 12/31/18 [History Confirmed 08/07/19 Last Taken Unknown] aspirin 81 mg tablet,delayed release 81 mg PO QDAY 01/02/19 [History Confirmed 08/07/19 Last Taken 06/08/19] tacrolimus 2.5 mg PO BID 01/02/19 [History Confirmed 08/07/19 Last Taken 08/07/19 08:00] hydrocortisone 10 mg tablet 20 mg PO TID #180 tab 05/04/19 [Rx Confirmed 08/07/19 Last Taken 08/07/19 15:00] oxycodone 15 mg tablet 15 mg PO Q4-5HP PRN tab 05/04/19 [History Confirmed 08/07/19 Last Taken 08/07/19 12:00] mycophenolate mofetil 500 mg tablet 500 mg PO BID #360 tab 05/19/19 [Rx Confirmed 08/07/19 Last Taken 08/07/19 08:00] amoxicillin 875 mg-potassium clavulanate 125 mg tablet 1 tab PO BID #10 tab 08/04/19 [Rx Confirmed 08/07/19 Last Taken 08/07/19 08:00] Medical - DS: Hosp Hospital Course: Mr. Lang is a 54 year old M Presents the ED with fever chills coughing shortness of breath. Patient states about a week ago he started belting rhinorrhea and subsequent cough of clear white sputum. He then developed fevers and chills body aches and headache which he attributed the cough. Decreased appetite and weakness. Also had some nausea. Over the past 2 to 3 days had increased shortness of breath. He saw his physician and was prescribed Augmentin and has taken that for 3 days but has not felt any better. In the ED he was noted to drop his oxygen saturation at one point down to the 80s on room air. Patient denies any traveling or sick contacts. Patient denies any chest pain or stomach pain other than muscle pain from coughing. Chest x-ray in ED read as a right lower lobe infiltrate. He states the DuoNeb treatment he received in the ED helped his breathing. He had a rapid flu test recently which was negative 08/07 Poor sleep last night. Headache, nausea vomiting, fever chills, diarrhea last night. Feels like his lungs are little better but still coughing. Air this morning. 08/08 Slept better last night. Has occasional headache and had chills through the night. Some sinus congestion and cough. Cough productive. Shortness of breath improving. 08/09 Doing well. On room air. Feeling much better. Stable for discharge A: *Pneumonia, Viral, (+)Human Metapneumovitus: but high risk for bacterial superinfection *Acute hypoxic respiratory failure: *Leukopenia: *Liver transplant/Immunosuppressed: Liver failure felt to be from Humira. Is on mycophenolate and tacrolimus *CKD IIIb: Follows with Dr. Duque *Anemia, chronic *h/o [place]'s: on hydrocortisone *RA: Follows with rheumatology *h/o CVA w/mild memory deficits: Discharge diagnosis: Pneumonia with positive human metapneumovirus hypoxic respiratory failure Secondary discharge diagnosis: Liver transplant immunosuppressive chronic kidney disease stage IIIb chronic anemia rheumatoid arthritis history of stroke [place]'s disease - Time Spent with Patient Total time spent providing and/or coordinating discharge services: Greater than 30 minutes Medical - DS: Exam - Constitutional Vitals: Vital Signs Temp Pulse Pulse Resp BP BP Pulse Ox 08/09/19 06:52 99.5 F H 73 18 132/74 96 08/09/19 03:02 98.2 F 74 20 151/88 96 08/08/19 23:41 98.6 F 74 18 148/66 97 08/08/19 20:43 67 16 08/08/19 18:57 98.5 F 85 18 142/68 98 08/08/19 16:00 98.2 F 99 H 16 138/78 96 08/08/19 12:12 69 18 08/08/19 11:37 98.4 F 68 20 146/88 95 Intake and Output 08/08/19 08/09/19 08/09/19 21:59 05:59 13:59 Intake Total 1920 750 Output Total 450 Balance 1470 750 Intake: Nourishment/Supplement quantity 240 (ml) IV 250 Vancomycin 1,000 mg In Sodium 250 Chloride 0.9% 250 ml @ 250 mls/ hr IV Q12H [facility] Rx#:[id number] Oral 880 500 GI Tube Flush 800 Output: Void Amount 450 Other: Meal Dinner Percent of Meal Consumed 50% Feeding Ability Independent Nourishment/Supplement name breeze Stool Size Small Stool Consistency Loose # Voids 4 2 # Bowel Movements 2 Weight 88.768 kg Medical - DS: Data Labs on day of discharge: Labs from last 24 hours 08/09/19 08:00 Vancomycin Trough Pending Medical - DS: A/P - Patient/Caregiver Discharge Instructions Activity: increase activity as tolerated Diet: Regular Diet Additional Instructions: Patient is being admitted to the hospital under the care of the hospitalist (Dr. Manrique). All further treatment decisions, modalities, and ultimate patient disposition be carried out by the hospitalist. - Follow up Plan Follow up with: Alan Dempsey DO [Primary Care Provider] - Disposition: Home, Self-Care Prognosis: Fair Rehab Potential: Fair Overall status at discharge: patient is progressing back to baseline Medical - DS: Qual - VTE Deep Vein Thrombosis/Pulmonary Embolism Present on Admission: No
[2019-08-09] MEDS: IPRATROPIUM/ALBUTEROL 3 ML AMPUL.NEB NEB SCH ×2 (09:05→21:32)
[2019-08-09] MEDS: ASPIRIN 81 MG TAB.CHEW PO SCH (09:28)
[2019-08-09] MEDS: HYDROCORTISONE 10 MG TABLET PO SCH ×3 (09:28→20:14)
[2019-08-09] MEDS: oxyCODONE HCL 5 MG TABLET PO PRN ×3 (09:28→20:42)
[2019-08-09] MEDS: ENOXAPARIN 40 MG/0.4 ML SYRINGE SQ SCH (09:29)
[2019-08-09] MEDS: TACROLIMUS 0.5 MG CAPSULE PO SCH ×2 (09:30→20:15)
[2019-08-09] MEDS: CEFEPIME 2 GM VIAL IV SCH ×2 (09:30→20:14)
[2019-08-09] MEDS: TACROLIMUS 1 MG CAPSULE PO SCH ×2 (09:31→20:14)
[2019-08-09] MEDS: diphenhydrAMINE 12.5 MG/5 ML ORAL.SOL PO PRN (13:25)
[2019-08-09] MEDS: BENZONATATE 100 MG CAPSULE PO PRN (14:50)
[2019-08-09] MEDS: ONDANSETRON 4 MG/2 ML VIAL IV PRN (15:04)
[2019-08-09] MEDS: MELATONIN 3 MG TABLET PO SCH (20:14)
[2019-08-10] MEDS: oxyCODONE HCL 5 MG TABLET PO PRN (02:17)
[2019-08-10] MEDS: ACETAMINOPHEN 325 MG TABLET PO PRN (02:17)
[2019-08-10] MEDS: BENZONATATE 100 MG CAPSULE PO PRN ×2 (02:20→07:44)
[2019-08-10] MEDS: diphenhydrAMINE 12.5 MG/5 ML ORAL.SOL PO PRN (04:03)
[2019-08-10] MEDS: 0.9 % SODIUM CHLORIDE 10 ML SYRINGE IV SCH (04:03)
[2019-08-10] MEDS: MYCOPHENOLATE 250 MG CAPSULE PO SCH (07:43)
[2019-08-10] MEDS: HYDROCORTISONE 10 MG TABLET PO SCH (09:31)
[2019-08-10] MEDS: ASPIRIN 81 MG TAB.CHEW PO SCH (09:31)
[2019-08-10] MEDS: ENOXAPARIN 40 MG/0.4 ML SYRINGE SQ SCH (09:32)
[2019-08-10] MEDS: TACROLIMUS 1 MG CAPSULE PO SCH (09:35)
[2019-08-10] MEDS: TACROLIMUS 0.5 MG CAPSULE PO SCH (09:36)
[2019-08-10] MEDS: CEFEPIME 2 GM VIAL IV SCH (09:38)
[2019-08-10] MEDS: IPRATROPIUM/ALBUTEROL 3 ML AMPUL.NEB NEB SCH (09:43)
== END 2019-08-10 10:30 | disposition home or self-care (01) | DRG 193 ==
LOC: ED 13:34 → MEDSUR 19:08
PROVIDERS: ADMIT Internal Medicine; ATTEND Internal Medicine